=== PATIENT | female | born 1935 | race Caucasian/White ===

== ENCOUNTER 2018-12-02 07:12 | Emergency (ER) | payer MEDICARE, OTHER ==
[2014-11-11 13:03] VITALS: Wt 104.3 kg
--- NOTE | 2018-12-02 07:27 | ER Report ---
History and Physical Time Seen By MD: 07:15 HPI/ROS CHIEF COMPLAINT: Left leg and knee pain HISTORY OF PRESENT ILLNESS: The patient is an 83-year-old female who presents to the emergency department for an acute on chronic problem which is worsening left knee pain and now unable to walk or do activities of daily living. This is been going on for the past few days. Patient is accompanied by daughter who gives additional history. Patient lives by herself has had difficulty with bleeding she does get Meals on Wheels but has very limited activity. Ice fevers or chills she denies chest pain or shortness of breath. She states that movement of the left knee causes pain. 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 Patient has history of chronic lymphedema. REVIEW OF SYSTEMS: Constitutional: No fever, no chills. Cardiovascular: No chest pain, no palpitations. Respiratory: No cough, no shortness of breath. Gastrointestinal: No abdominal pain, no vomiting. Genitourinary: No hematuria. Musculoskeletal: Bilateral lower extremity edema, left knee pain Skin: Thickening of skin to bilateral lower extremities Neurological: No headache. Allergies: Coded Allergies: morphine (Verified Allergy, Severe, NAUSEA/VOMITING, 12/02/18) cephalexin (Verified Allergy, Intermediate, RASH, 12/02/18) Home Meds Active Scripts Fluticasone Prop 50 Mcg Ns (FLONASE 50 MCG NS) 16 Gm [place].susp, 1-2 SPRAYS NS QDAY, #3 BOT 3 Refills Prov:CORIE WELDON MD 08/28/16 Apixaban (ELIQUIS) 2.5 Mg Tablet, 1 TAB PO BID, #180 TAB 4 Refills Prov:CORIE WELDON MD 08/23/16 Sitagliptin Phosphate (JANUVIA) 50 Mg Tablet, 1 TAB PO QDAY, #90 TAB 4 Refills Prov:CORIE WELDON MD 08/23/16 Lisinopril (LISINOPRIL) 10 Mg Tablet, 1 TAB PO QDAY, #90 TAB 4 Refills Prov:CORIE WELDON MD 08/23/16 Levothyroxine Sodium (LEVOTHYROXINE SODIUM) 88 Mcg Tablet, 1 TAB PO QDAY, #90 TAB 4 Refills Prov:CORIE WELDON MD 07/25/16 Pravastatin Sodium (PRAVASTATIN SODIUM) 80 Mg Tablet, 1 TAB PO QDAY, #90 TAB 4 Refills Prov:CORIE WELDON MD 04/08/16 Pen Needle, Diabetic, Safety (PEN NEEDLE) 1 Each Dis.needle, 1 BOX MC BID, #4 3 Refills Prov:CORIE WELDON MD 02/19/16 Blood Ketone Test,Strips (PRECISION XTRA) 1 Each Strip, 1 BOX MC BID for Blood glucose testing, #4 3 Refills Test blood glucose twice a day. Prov:CORIE WELDON MD 02/19/16 Insulin Glargine 100 Un/Ml Pen (LANTUS SOLOSTAR PEN) 100 Unit/1 Ml Insuln.pen, 48 UNIT SUBQ QHS, #3 BOX 4 Refills Prov:CORIE WELDON MD 01/18/16 Oxygen (OXYGEN) Inha, 3 L INH DIRECTED for 30 Days, L 11 Refills Lifetime need, use round the clock Prov:CORIE WELDON MD 03/14/15 Discontinued Scripts Furosemide (FUROSEMIDE) 40 Mg Tablet, 1 TAB PO DAILY, #90 TAB 4 Refills Prov:CORIE WELDON MD 04/08/16 Fluticasone Furoate (VERAMYST) 10 Gm [place], 2 SPRAYS NA QDAY, #1 BOTTLE 2 Refills Prov:CORIE WELDON MD 04/08/16 Past Medical/Surgical History Medical history DVT, 2 hyperlipidemia, hypertension, type I diabetes, hypothyroidism, history of non-Hodgkin's lymphoma, history of lymph edema Hx Smoking: No Smoking Status: Never Smoker Hx Alcohol Use: No Constitutional Vital Sign - Last 24 Hours 12/02/18 12/02/18 12/02/18 12/02/18 07:16 07:30 08:00 08:30 Temp 98.0 Pulse 100 100 99 94 Resp 20 37 49 18 B/P (MAP) 152/77 152/77 (102) 148/87 (107) 153/84 (107) Pulse Ox 90 93 86 87 O2 Delivery Room Air 12/02/18 12/02/18 12/02/18 12/02/18 08:59 09:00 09:30 10:00 Pulse 91 99 92 Resp 18 65 11 B/P (MAP) 139/88 (105) 156/84 (108) 146/85 (105) Pulse Ox 85 98 97 O2 Flow Rate 1.0 12/02/18 12/02/18 12/02/18 11:00 11:30 12:00 Pulse 92 87 83 Pulse Ox 89 91 91 Physical Exam General Appearance: The patient is alert, has no immediate need for airway protection and no signs of toxicity. Eyes: Pupils equal and round no pallor or injection. ENT, Mouth: Mucous membranes are moist. Respiratory: There are no retractions, lungs are clear to auscultation. Cardiovascular: Regular rate and rhythm. Gastrointestinal: Abdomen is soft and non tender, no masses, bowel sounds normal. Neurological: Awake alert Skin: Patient with hyperkeratosis to bilateral lower extremities along with changes of chronic venous stasis to bilateral lower extremities Musculoskeletal: Neck is supple non tender. Patient with pain to the left knee with movement Medical Decision Making Data Points Result Diagram: 12/02/18 0724 12/02/18 0724 Laboratory Hematology Test 12/02/18 07:24 12/02/18 08:45 Red Blood Count 4.58 M/uL (4.17-5.56) Mean Corpuscular Volume 89.1 fL (80.0-96.0) Mean Corpuscular Hemoglobin 29.8 pg (26.0-33.0) Mean Corpuscular Hemoglobin Concent 33.4 g/dL (32.0-36.0) Red Cell Distribution Width 14.1 % (11.5-14.5) Mean Platelet Volume 8.1 fL (7.2-11.1) Neutrophils (%) (Auto) 59.0 % (39.4-72.5) Lymphocytes (%) (Auto) 32.4 % (17.6-49.6) Monocytes (%) (Auto) 7.6 % (4.1-12.4) Eosinophils (%) (Auto) 0.5 % (0.4-6.7) Basophils (%) (Auto) 0.5 % (0.3-1.4) Nucleated RBC Relative Count (auto) 0.1 /100WBC Neutrophils # (Auto) 3.1 K/uL (2.0-7.4) Lymphocytes # (Auto) 1.7 K/uL (1.3-3.6) Monocytes # (Auto) 0.4 K/uL (0.3-1.0) Eosinophils # (Auto) 0.0 K/uL (0.0-0.5) Basophils # (Auto) 0.0 K/uL (0.0-0.1) Nucleated RBC Absolute Count (auto) 0.01 K/uL Prothrombin Time 13.4 seconds (12.0-14.4) Prothromb Time International Ratio 1.02 Activated Partial Thromboplast Time 24 seconds (23-35) Sodium Level 138 mmol/L (137-145) Potassium Level 4.1 mmol/L (3.5-5.0) Chloride Level 102 mmol/L (98-107) Carbon Dioxide Level 24 mmol/L (22-31) Blood Urea Nitrogen 19 mg/dl (7-18) Creatinine 1.00 mg/dl (0.52-1.04) Glomerular Filtration Rate Calc 53.0 Random Glucose 254 mg/dl (75-110) Calcium Level 9.1 mg/dl (8.4-10.2) Total Bilirubin 0.7 mg/dl (0.2-1.3) Aspartate Amino Transf (AST/SGOT) 21 U/L (0-35) Alanine Aminotransferase (ALT/SGPT) 26 U/L (0-56) Alkaline Phosphatase 86 U/L (0-126) Total Protein 6.7 g/dl (6.3-8.2) Albumin 3.8 g/dl (3.5-5.0) Urine Color Yellow Urine Clarity Clear Urine pH 7.0 pH (4.8-9.5) Urine Specific [place] 1.008 Urine Protein Negative mg/dL (NEGATIVE) Urine Glucose (UA) 150 mg/dL (NEGATIVE) Urine Ketones Negative mg/dL (NEGATIVE) Urine Blood Small (NEGATIVE) Urine Nitrite Negative (NEGATIVE) Urine Bilirubin Negative (NEGATIVE) Urine Urobilinogen Negative mg/dL (0.2-1.9) Urine Leukocyte Esterase Negative (NEGATIVE) Urine RBC <1 /HPF (0-2/HPF) Urine WBC 1 /HPF (0-5/HPF) Urine Squamous Epithelial Cells Many /LPF (</=FEW) Urine Bacteria Many /HPF (NONE-FEW) Urine Mucus None /HPF (NONE-FEW) Chemistry Test 12/02/18 07:24 12/02/18 08:45 White Blood Count 5.3 k/uL (4.5-11.0) Red Blood Count 4.58 M/uL (4.17-5.56) Hemoglobin 13.6 g/dL (12.0-16.0) Hematocrit 40.8 % (34.0-47.0) Mean Corpuscular Volume 89.1 fL (80.0-96.0) Mean Corpuscular Hemoglobin 29.8 pg (26.0-33.0) Mean Corpuscular Hemoglobin Concent 33.4 g/dL (32.0-36.0) Red Cell Distribution Width 14.1 % (11.5-14.5) Platelet Count 171 K/uL (150-450) Mean Platelet Volume 8.1 fL (7.2-11.1) Neutrophils (%) (Auto) 59.0 % (39.4-72.5) Lymphocytes (%) (Auto) 32.4 % (17.6-49.6) Monocytes (%) (Auto) 7.6 % (4.1-12.4) Eosinophils (%) (Auto) 0.5 % (0.4-6.7) Basophils (%) (Auto) 0.5 % (0.3-1.4) Nucleated RBC Relative Count (auto) 0.1 /100WBC Neutrophils # (Auto) 3.1 K/uL (2.0-7.4) Lymphocytes # (Auto) 1.7 K/uL (1.3-3.6) Monocytes # (Auto) 0.4 K/uL (0.3-1.0) Eosinophils # (Auto) 0.0 K/uL (0.0-0.5) Basophils # (Auto) 0.0 K/uL (0.0-0.1) Nucleated RBC Absolute Count (auto) 0.01 K/uL Prothrombin Time 13.4 seconds (12.0-14.4) Prothromb Time International Ratio 1.02 Activated Partial Thromboplast Time 24 seconds (23-35) Glomerular Filtration Rate Calc 53.0 Calcium Level 9.1 mg/dl (8.4-10.2) Total Bilirubin 0.7 mg/dl (0.2-1.3) Aspartate Amino Transf (AST/SGOT) 21 U/L (0-35) Alanine Aminotransferase (ALT/SGPT) 26 U/L (0-56) Alkaline Phosphatase 86 U/L (0-126) Total Protein 6.7 g/dl (6.3-8.2) Albumin 3.8 g/dl (3.5-5.0) Urine Color Yellow Urine Clarity Clear Urine pH 7.0 pH (4.8-9.5) Urine Specific [place] 1.008 Urine Protein Negative mg/dL (NEGATIVE) Urine Glucose (UA) 150 mg/dL (NEGATIVE) Urine Ketones Negative mg/dL (NEGATIVE) Urine Blood Small (NEGATIVE) Urine Nitrite Negative (NEGATIVE) Urine Bilirubin Negative (NEGATIVE) Urine Urobilinogen Negative mg/dL (0.2-1.9) Urine Leukocyte Esterase Negative (NEGATIVE) Urine RBC <1 /HPF (0-2/HPF) Urine WBC 1 /HPF (0-5/HPF) Urine Squamous Epithelial Cells Many /LPF (</=FEW) Urine Bacteria Many /HPF (NONE-FEW) Urine Mucus None /HPF (NONE-FEW) Coagulation Test 12/02/18 07:24 Prothrombin Time 13.4 seconds Prothromb Time International Ratio 1.02 Activated Partial Thromboplast Time 24 seconds Urinalysis Test 12/02/18 08:45 Urine Color Yellow Urine Clarity Clear Urine pH 7.0 pH (4.8-9.5) Urine Specific [place] 1.008 Urine Protein Negative mg/dL (NEGATIVE) Urine Glucose (UA) 150 mg/dL (NEGATIVE) Urine Ketones Negative mg/dL (NEGATIVE) Urine Blood Small (NEGATIVE) Urine Nitrite Negative (NEGATIVE) Urine Bilirubin Negative (NEGATIVE) Urine Urobilinogen Negative mg/dL (0.2-1.9) Urine Leukocyte Esterase Negative (NEGATIVE) Urine RBC <1 /HPF (0-2/HPF) Urine WBC 1 /HPF (0-5/HPF) Urine Squamous Epithelial Cells Many /LPF (</=FEW) Urine Bacteria Many /HPF (NONE-FEW) Urine Mucus None /HPF (NONE-FEW) ED Course/Re-evaluation ED Course 12/02/2018 8:08:57 am plan at this time will be to perform medical screening evaluation we will also perform a venous Doppler of left lower extremity due to prior history of DVT although I feel this is unlikely. Patient's pretest probability for DVT however is high, this is the reason for the Doppler study. I we will also perform x-ray of the left knee and after that perform physical therapy evaluation. 12/02/2018 2:40:51 pm she was evaluated by physical therapy she is able to do basic activities of daily living but does require advanced nursing care at home. We have arranged home health nursing for the patient we will discharge her back to her home. Decision to Disposition Date: Dec 02, 2018 Decision to Disposition Time: 14:40 Depart Departure Latest Vital Signs Vital Signs Date Time Temp Pulse Resp B/P (MAP) Pulse Ox O2 Delivery O2 Flow Rate FiO2 12/02/18 12:00 83 91 12/02/18 10:00 11 146/85 (105) 12/02/18 08:59 1.0 12/02/18 07:16 98.0 Room Air Impression: Primary Impression: Edema Condition: Stable Disposition: HOME OR SELF-CARE Referrals: CORIE WELDON MD (PCP) Departure Forms: ER Transition Record, Medications Reconciliation, Patient Portal Information Patient Instructions: Edema (ED), Edema,Peripheral Problem Qualifiers Primary Impression: Edema Edema type: generalized Qualified Codes: R60.1 - Generalized edema AMAIRANI WILLINGHAM MD Dec 02, 2018 07:27
[2018-12-02 08:01] LABS: PLATELET COUNT, AUTOMATED 171 K/uL (150-450)
--- NOTE | 2018-12-02 08:05 | EKG ---
FAC[place] [facility] [place] NAME: JAC BRADY : [id number] MR: [id number] V: [id number] EXAM DATE: ORDERING PHYSICIAN: AMAIRANI WILLINGHAM TECHNOLOGIST: NEVILLE Varma Reason : WEAKNESS Blood Pressure : / mmHG Vent. Rate : 081 BPM Atrial Rate : 081 BPM P-R Int : 170 ms QRS Dur : 084 ms QT Int : 374 ms P-R-T Axes : 068 -47 030 degrees QTc Int : 434 ms Sinus rhythm Left axis Decreased R wave progression through precordial leads No previous ECGs available Confirmed by MAXI OWENS ([id number]) on 12/02/2018 8:18:22 PM Referred By: TARSHA Confirmed By:MAXI OWENS
[2018-12-02 08:06] LABS: INR 1.02
--- NOTE | 2018-12-02 08:57 | RADIOLOGY IMAGING REPORT ---
FACILITY: [facility] PATIENT NAME: Letty Cai : 1935 MR: [id number] V: [id number] EXAM DATE: ORDERING PHYSICIAN: AMAIRANI WILLINGHAM TECHNOLOGIST: Location: [facility] Patient: Letty Cai : 1935 Visit/Account:[id number] Date of Sevice: 12/02/2018 Exam type: US VENOUS LOWER EXT LT History: pain, prior dvt Comparison: November 10, 2014. Findings: There is a small amount of echogenic material within the proximal left superficial femoral vein which is partially compressible. This may represent chronic thrombus which is not occlusive. The right c ommon femoral vein greater saphenous vein mid and distal left superficial femoral vein and popliteal veins appeared patent without evidence of thrombus, were compressible and demonstrated augmentation The calf veins were not ideally visualized although on the limited views there is no gross evidence o f thrombus in the posterior tibial or anterior tibial veins. IMPRESSION: 1. Small amount of echogenic material was seen in the proximal left superficial femoral vein which i s partially compressible. This may represent chronic thrombus which is nonocclusive. The calf veins were not ideally seen due to edema and patient's body habitus by technologist notation although no gross evidence of thrombus demonstrated Report Dictated By: Sabine Jean Baptiste MD at 12/02/2018 8:47 AM Report E-Signed By: Sabine Jean Baptiste MD at 12/02/2018 8:51 AM WSN:[email or web address]
--- NOTE | 2018-12-02 09:15 | RADIOLOGY IMAGING REPORT ---
FACILITY: PATIENT NAME: Letty Cai : 1935 MR: [id number] V: [id number] EXAM DATE: ORDERING PHYSICIAN: AMAIRANI WILLINGHAM TECHNOLOGIST: Location: [facility] Patient: Letty Cai : 1935 Visit/Account:[id number] Date of Sevice: 12/02/2018 EXAMINATION: Right knee, 4 views 12/02/2018 7:44 AM HISTORY: Pain. No known recent injury. COMPARISON: None FINDINGS: Marginal osteophytic spurring in all compartments. Mild medial femorotibial joint space lo ss. No erosive changes. There may be a small suprapatellar effusion. No acute-appearing bony findi ng. IMPRESSION: [id number] osteoarthritis. No acute bony abnormality. Report Dictated By: Maximiliano Chairez MD at 12/02/2018 9:09 AM Report E-Signed By: Maximiliano Chairez MD at 12/02/2018 9:11 AM WSN:[email or web address]
[2018-12-02 10:00] VITALS: BP 146/85
--- NOTE | 2018-12-02 12:46 | NUR ---
Physical Therapy Impression PT eval complete. Pt demonstrated functional mobility at level safe for DC home. Recommend home health nursing, physical therapy, and CNAs to assist with bathing. Also noted open area on posterior right leg which does not require debridement. Nurse in ED to dress. Home health nursing able to manage this open area. Physical Therapy Goals Patient's Goals
== END 2018-12-02 15:00 | disposition home or self-care (01) ==
LOC: ER 07:17
DX: R60.1 Generalized edema (principal); Z79.01 Long term (current) use of anticoagulants
CPT/HCPCS: 73564; 81001; 82040; 82247; 82310; 82374; 82435; 82565; 82947; 84075; 84132; 84155; 84295; 84450; 84460; 84520; 85025; 85610; 85730; 93005; 97162; 99284

== ENCOUNTER → 2018-12-02 | Outpatient (CLI) | payer MEDICARE, OTHER ==
[2014-11-11 13:03] VITALS: BMI 47.9
[~2018-12-02] MED LIST: AMOX1TAB9 PO; APIX2.5T PO; BLOO-1456 MC; EZET1TAB53 PO; EZET1TAB61 PO; FLUC100T35 PO; FLUT10SP; FLUT16SP19 NS; FUR40 PO; FURO-47 PO; GLIM2TAB43 PO; GLIM4TAB49 PO; INSU100C12 SQ; INSU100I30 SUBQ; LEVO50TA80 PO; LEVO88TA45 PO; LIS20 PO; LISI-362 PO; METF-420 PO; NEB5 PO; OXYGENHOME INH; PEN1DIS. MC; PNEU0.5D3 IM; PRAV80TA29 PO; SITA100T9 PO; SITA50TA6 PO; WARF-12 PO; WARF3TAB14 PO; WARF3TAB35 PO; WARF4TAB15 PO; WARF5TAB23 PO; [UNRECOGNIZED DRUG - CODE] PO
== END ==
LOC: AMB 06:55
PROVIDERS: ATTEND Nurse Practitioner
DX: R06.9 Unspecified abnormalities of breathing (principal); M79.662 Pain in left lower leg; M79.661 Pain in right lower leg
CPT/HCPCS: A0425; A0429

== ENCOUNTER → 2018-12-21 | Outpatient (REF) | payer MEDICARE, OTHER ==
[2014-11-11 13:03] VITALS: BMI 47.9
== END ==
LOC: ZZSENDIN 14:09
PROVIDERS: ATTEND Family Medicine
DX: E11.42 Type 2 diabetes mellitus with diabetic polyneuropathy (principal)
CPT/HCPCS: 82310; 82374; 82435; 82565; 82947; 84132; 84295; 84520